=== PATIENT | female | born 1975 | race Caucasian/White ===

== ENCOUNTER 2021-04-14 07:37 | Emergency (ER) | payer BC ==
[~2021-04-14 07:37] MED LIST: IBUPROFEN600 MG PO
[2021-04-14 08:15] LABS: HEMOGLOBIN 14.8 gm/dl (12.3-15.3); RED BLOOD COUNT 4.6 M/UL (4.00-5.10); WHITE BLOOD COUNT 6.7 K/UL (4.5-11.0)
[2021-04-14 09:03] LABS: BUN/CREATININE RATIO 14 (0-10)
== END 2021-04-14 11:54 | disposition home or self-care (01) ==
LOC: ER1 07:37
PROVIDERS: Physician Assistant
DX: U07.1 COVID-19 (principal); Z90.710 Acquired absence of both cervix and uterus; Z88.6 Allergy status to analgesic agent
CPT/HCPCS: 71045; 80053; 82550; 82553; 83874; 84484; 85025; 85379; 93005; 96374; 99285; J1885; U0003

== ENCOUNTER → 2021-05-24 | Outpatient (CLI) | payer BC | LOC: HEART 5 10:44 | DX: R07.9 Chest pain, unspecified (principal) ==